=== PATIENT | female | born 1935 | race Caucasian/White ===

== ENCOUNTER → 2017-12-04 | Outpatient (REF) | payer MEDICARE, OTHER | LOC: M LAB REF 13:11 | DX: C44.112 Basal cell carcinoma of skin of right eyelid, including canthus (principal) | CPT/HCPCS: 88305 ==

== ENCOUNTER → 2021-12-05 | Outpatient (REF) | payer MEDICARE, OTHER | LOC: M SFHCDERM 17:32 | PROVIDERS: ATTEND Physician Assistant | DX: C44.42 Squamous cell carcinoma of skin of scalp and neck (principal) ==

== ENCOUNTER → 2022-01-29 | Outpatient (REF) | payer MEDICARE, OTHER | LOC: M SFHCDERM 14:19 | PROVIDERS: ATTEND Physician Assistant | DX: Z48.02 Encounter for removal of sutures (principal) ==